=== PATIENT | female | born 1940 | race Caucasian/White ===

== ENCOUNTER 2023-12-30 16:14 | Emergency (ER) | payer OTHER, MEDICAID ==
[~2023-12-30] VITALS: Ht 152.4 cm; Wt 45.4 kg
[2023-12-30] MEDS ORDERED: AMLO-212 PO (16:40)
[2023-12-30] MEDS ORDERED: STATINS (16:40)
[2023-12-30 17:07] LABS: BASOPHILS % (AUTO) 0.3 % (0.0-2.0); EOSINOPHILS % (AUTO) 0.3 % (0.0-7.0); HEMOGLOBIN 13.4 g/dL (10.9-14.3); LYMPHOCYTES # (AUTO) 0.9 K/uL (0.8-4.8); LYMPHOCYTES % (AUTO) 11.3 % (20.5-51.5); MEAN CORPUSCULAR HEMOGLOBIN 29.4 uug (24.7-32.8); MEAN CORPUSCULAR HGB CONC 33 g/dL (32.3-35.6); MEAN CORPUSCULAR VOLUME 90.4 fL (75.5-95.3); MONOCYTES # (AUTO) 0.6 K/uL (0.1-1.30); MONOCYTES % (AUTO) 7.1 % (0.0-11.0); NEUTROPHILS # (AUTO) 6.7 K/uL (1.8-8.9); PLATELET COUNT (AUTO) 225 K/uL (179-408); RED BLOOD CELL COUNT(AUTO) 4.54 MIL/uL (3.63-4.92); RED CELL DISTRIBUTION WIDTH 13.6 % (12.3-17.7); WHITE BLOOD COUNT (AUTO) 8.3 K/uL (3.8-11.8)
[2023-12-30 17:09] LABS: DIFFERENTIAL COMMENT 1
[2023-12-30 17:17] LABS: CALCIUM 9.2 mg/dL (8.5-10.1); CREATININE 0.7 mg/dL (0.6-1.3); POTASSIUM 4.4 mmol/L (3.5-5.1)
[2023-12-30] MEDS ORDERED: FENTANYL CITRATE 100 MCG/2 ML AMPUL ONE ×2 (17:18→21:37)
[2023-12-30] MEDS: FENTANYL CITRATE 100 MCG/2 ML AMPUL IV ONE ×2 (17:23→21:39)
[2023-12-30 22:39] VITALS: O2SAT 96
== END 2023-12-30 22:44 | disposition short-term general hospital (02) ==
LOC: ER 16:15
DX: S82.391A Other fracture of lower end of right tibia, initial encounter for closed fracture (principal); I10 Essential (primary) hypertension; E78.5 Hyperlipidemia, unspecified; Z79.899 Other long term (current) drug therapy; Z60.2 Problems related to living alone; W22.8XXA Striking against or struck by other objects, initial encounter; Y93.89 Activity, other specified; Y92.89 Other specified places as the place of occurrence of the external cause; Y99.8 Other external cause status
CPT/HCPCS: 29515; 36415; 71045; 73590; 73610; 80048; 85025; 85730; 93005; 96374; 96376; 99285; J3010; A4606; A4663